=== PATIENT | male | born 1950 | race Caucasian/White ===

== ENCOUNTER → 2023-05-29 15:06 | Outpatient (CLI) | payer OTHER, SELFPAY ==
[2023-05-29 16:10] LABS: Add Manual Diff / Slide Review NO; Basophils Absolute Auto 0 /uL (0-100); Basophils Percent Auto 0.3 % (0-2); Eosinophils Absolute Auto 100 /uL (0-450); Eosinophils Percent Auto 2.2 % (2-4); Hematocrit 39.6 % (41-53); Hemoglobin 14.2 g/dL (13.5-17.5); Lymphocytes Absolute Auto 1300 /uL (1100-4500); Lymphocytes Percent Auto 26.7 % (25-40); Mean Corpuscular HGB Conc 35.7 % (30-36); Mean Corpuscular Hemoglobin 31.7 PG (26-34); Mean Corpuscular Volume 88.7 fL (80-100); Monocytes Absolute Auto 600 /uL (0-900); Monocytes Percent Auto 11.3 % (3-14); Neutrophils Absolute Auto 3000 /uL (1500-7000); Neutrophils Percent Auto 59.5 % (50-75); Platelet Count 281 X10^3/uL (150-400); Red Blood Cell Count 4.47 X10^6/uL (4.5-5.9); Red Cell Distribution Width 13.3 % (11.6-14.8)
[2023-05-29 16:22] LABS: Hemoglobin A1C% w Est Avg Glu 5.3 % (4.0-6.0)
[2023-05-29 16:35] LABS: Alanine Aminotransferase 14 IU/L (<50); Albumin 4.5 g/dL (3.5-5.0); Albumin Globulin Ratio 1.3 (1.0-2.8); Alkaline Phosphatase 72 U/L (38-126); Aspartate Aminotransferase 24 IU/L (17-59); Bilirubin Total 0.6 mg/dL (0.2-1.3); Blood Urea Nitrogen 15 mg/dL (9-20); Calcium 9.8 mg/dL (8.4-10.2); Carbon Dioxide 25 mmol/L (22-32); Chloride 103 mmol/L (98-107); Cholesterol 162 mg/dL (140-199); Estimated Glomerular Filt Rate > 60 mL/min (>60); Globulin 3.4 g/dL (1.7-4.1); Glucose 102 mg/dL (80-110); HDL Cholesterol 29 mg/dL (40-60); HEMOLYSIS 25 (0-50); LDL Cholesterol Calculated 83 mg/dL (<100); Potassium 3.1 mmol/L (3.4-5.1); Sodium 140 mmol/L (137-145); Total Protein 7.9 g/dL (6.3-8.2); Triglycerides 251 mg/dL (35-150)
== END ==
PROVIDERS: PCP Student in an Organized Health Care Education/Training Program; Referring Provider Student in an Organized Health Care Education/Training Program; Visit Provider Student in an Organized Health Care Education/Training Program
DX: I10 Essential (primary) hypertension (principal); Z13.1 Encounter for screening for diabetes mellitus
CPT/HCPCS: 36415; 80053; 80061; 83036; 85025

== ENCOUNTER → 2024-11-08 09:56 | Outpatient (CLI) | payer MEDICARE, MEDICAID, SELFPAY ==
[2024-11-08 10:38] LABS: Add Manual Diff / Slide Review NO; Basophils Absolute Auto 0 /uL (0-100); Basophils Percent Auto 0.3 % (0-2); Eosinophils Absolute Auto 100 /uL (0-450); Hematocrit 40.2 % (41-53); Hemoglobin 14.1 g/dL (13.5-17.5); Lymphocytes Absolute Auto 900 /uL (1100-4500); Lymphocytes Percent Auto 24.8 % (25-40); Mean Corpuscular HGB Conc 35.1 % (30-36); Mean Corpuscular Hemoglobin 31.2 PG (26-34); Mean Corpuscular Volume 88.8 fL (80-100); Monocytes Absolute Auto 500 /uL (0-900); Monocytes Percent Auto 12.8 % (3-14); Neutrophils Absolute Auto 2100 /uL (1500-7000); Neutrophils Percent Auto 59.1 % (50-75); Platelet Count 250 X10^3/uL (150-400); Red Blood Cell Count 4.53 X10^6/uL (4.5-5.9); Red Cell Distribution Width 13.7 % (11.6-14.8); White Blood Cell Count 3.6 X10^3/uL (4.5-11.0)
[2024-11-08 10:47] LABS: Hemoglobin A1C% w Est Avg Glu 5.4 % (4.0-6.0)
[2024-11-08 11:08] LABS: Alanine Aminotransferase 13 IU/L (<50); Albumin 4.9 g/dL (3.5-5.0); Alkaline Phosphatase 69 U/L (38-126); Aspartate Aminotransferase 19 IU/L (17-59); BUN Creatinine Ratio 17.6 (6-22); Bilirubin Total 1.3 mg/dL (0.2-1.3); Blood Urea Nitrogen 19 mg/dL (9-20); Calcium 9.9 mg/dL (8.4-10.2); Carbon Dioxide 27 mmol/L (22-32); Chloride 101 mmol/L (98-107); Cholesterol 198 mg/dL (140-199); Estimated Glomerular Filt Rate > 60 mL/min (>60); Globulin 2.5 g/dL (1.7-4.1); Glucose 137 mg/dL (80-110); HDL Cholesterol 35 mg/dL (40-60); HEMOLYSIS < 15 (0-50); LDL Cholesterol Calculated 139 mg/dL (<100); Potassium 3.4 mmol/L (3.4-5.1); Sodium 140 mmol/L (137-145); Total Protein 7.4 g/dL (6.3-8.2); Triglycerides 120 mg/dL (35-150)
[2024-11-08 13:51] LABS: Creatinine Urine Random 248.44 mg/dL
[2024-11-08 13:56] LABS: Microalbumin Urine Random 4.5 mg/dL (0-1.6)
== END ==
PROVIDERS: PCP Student in an Organized Health Care Education/Training Program; Referring Provider Student in an Organized Health Care Education/Training Program; Visit Provider Student in an Organized Health Care Education/Training Program
DX: E11.9 Type 2 diabetes mellitus without complications (principal); E78.5 Hyperlipidemia, unspecified; I10 Essential (primary) hypertension
CPT/HCPCS: 36415; 80053; 80061; 82043; 82570; 83036; 85025

== ENCOUNTER 2025-03-11 22:19 | Emergency (ER) | payer MEDICARE, SELFPAY ==
[2025-03-11 22:36] VITALS: BP 119/72; PULSE 98; RESP 16; TEMP 36.4; O2SAT 96; BMI 28.3
[2025-03-11 23:01] LABS: Appearance Urine UA CLOUDY; Bilirubin Urine UA 1+ (NEGATIVE); Color Urine UA RED; Glucose Urine UA NEGATIVE (Negative); Ketones Urine UA TRACE (NEGATIVE); Leukocyte Esterase Urine UA TRACE (NEGATIVE); Nitrite Urine UA NEGATIVE (Negative); Occult Blood Urine UA 3+ (Negative); Protein Urine UA 3+ (Negative); Specific Gravity Urine UA 1.025 (1.000-1.035); Urobilinogen Urine UA 2.0 E.U./dL (0.2); pH Urine UA 5.5 (4.5-8.0)
[2025-03-11 23:04] LABS: Culture Indicated Urine Specimen Cultured
[2025-03-11 23:14] LABS: Ictotest Urine Negative (Negative)
[2025-03-12 01:23] VITALS: BP 134/71; PULSE 79; RESP 16; TEMP 36.4; O2SAT 98
--- NOTE | 2025-03-12 01:54 | ED.MALEGU ---
HPI - Male Genitourinary General Chief complaint: Urogenital-Male Stated complaint: blood in urine Time Seen by Provider: 03/12/25 01:53 Source: family Mode of arrival: Wheelchair History of Present Illness HPI Narrative: (Sammarinese language translation by at bedside) 74-year-old male with history of Alzheimer's, lives with who is translating and communicating at bedside, recently moved with from [place], history of remote bladder cancer, history of remote prostate cancer, prior treatments at [facility], no active ongoing cancer treatments, has 2 days duration of bloody urine, no fevers, no nausea or vomiting. Not currently taking any antibiotics. No [place] catheters or suprapubic catheters. Not currently taking blood thinner medications. Related Data Previous Rx's ?Medication ?Instructions ?Recorded amlodipine 5 mg tablet 5 mg PO DAILY #90 tabs 05/30/24 aspirin 81 mg tablet,delayed 81 mg PO DAILY #30 tabs 05/30/24 release (Adult Aspirin Regimen) atorvastatin 40 mg tablet 40 mg PO DAILY #90 tabs 05/30/24 losartan 100 1 tab PO DAILY #90 tabs 05/30/24 mg-hydrochlorothiazide 25 mg tablet metformin 500 mg tablet 500 mg PO DAILY #90 tabs 09/16/24 sertraline 50 mg tablet 50 mg PO DAILY #90 tabs 09/20/24 cephalexin 500 mg capsule 500 mg PO QID 7 days #28 caps 03/12/25 Allergies Allergy/AdvReac Type Severity Reaction Status Date / Time No Known Drug Allergies Allergy Unverified 03/11/25 22:36 Patient History Social History Smoking Status: Never smoker Smoking Status: Never smoker Exam Narrative Exam Narrative: GENERAL: Alert, cooperative HEAD: Atraumatic. Normocephalic. EYES: Pupils equal round and reactive. Extraocular motions intact. No scleral icterus. No injection or drainage. ENT: Nose without bleeding, purulent drainage. No obvious craniofacial trauma. Airway patent. NECK: Trachea midline. Moves neck well. CARDIOVASCULAR: Regular rate and rhythm without murmurs, gallops, or rubs. RESPIRATORY: Clear to auscultation. Breath sounds equal bilaterally. No wheezes, rales, or rhonchi. GASTROINTESTINAL: Abdomen soft, non-tender, nondistended. EXTREMITIES: No edema or joint tenderness. BACK: Nontender without deformity or crepitance. No flank tenderness. NEURO: AOx3. Motor functions grossly nonfocal. SKIN: No rash or erythema of visible areas Initial Vital Signs Initial Vital Signs: Vital Signs Temperature 97.6 F 03/11/25 22:36 Pulse Rate 98 H 03/11/25 22:36 Respiratory Rate 16 03/11/25 22:36 Blood Pressure 119/72 03/11/25 22:36 Pulse Oximetry 96 03/11/25 22:36 Oxygen Delivery Method Room Air 03/11/25 22:36 Course Orders Ordered: ED Orders 03/11/25 22:45 Ictotest Urine Stat Urinalysis and Microscopic Stat Urine Culture Stat Discontinued Medications Cephalexin HCl (Cephalexin 250 Mg Capsule) 500 mg PO NOW ONE Stop: 03/12/25 02:09 Last Admin: 03/12/25 02:11 Dose: 500 mg Documented By: ALLEY Vital Signs Vital signs: Vital Signs - 8 hr 03/11/25 22:36 03/12/25 01:23 Temperature 97.6 F 97.6 F Pulse Rate 98 H 79 Respiratory Rate 16 16 Blood Pressure 119/72 134/71 Pulse Oximetry 96 98 Oxygen Delivery Method Room Air Room Air [facility] - Male Genitourinary Lab Data Attestation: I reviewed the patient's lab results. Lab results narrative: Urinalysis suspicious for infection, urine culture triggered. Labs: Lab Results 03/11/25 Range/Units 22:45 Urine Color Red Urine Appearance Cloudy Urine pH 5.5 (4.5-8.0) Ur Specific [place] 1.025 (1.000-1.035) Urine Protein 3+ H (Negative) Urine Glucose (UA) Negative (Negative) g/dL Urine Ketones Trace H (NEGATIVE) Urine Occult Blood 3+ H (Negative) Urine Nitrate Negative (Negative) Urine Bilirubin 1+ H (NEGATIVE) Ur Bilirubin Confirm Negative (Negative) Urine Urobilinogen 2.0 H (0.2) E.U./dL Ur Leukocyte Esterase Trace H (NEGATIVE) Urine RBC >100/hpf H (0-5/HPF) Urine WBC 10-30/hpf H (0-5/HPF) Ur Squamous Epith Cells 0-1 /hpf (0-5/HPF) Urine Bacteria Moderate (10-30) H (None) Ur Culture Indicated? Specimen cultured Vol Urine Centrifuged Low vol <10ml (spun) A [facility] Narrative Medical decision making narrative: History of dementia, bloody urine last couple of days, no fever unknown, afebrile, sirs screen negative. Urinalysis suspicious for infection. Oral antibiotic cephalexin given, prescription sent to pharmacy for further course of antibiotic. Advised recheck if not improving in the next couple of days. Return precautions discussed. Discharged home with . Discharge Plan Departure Patient Disposition: Home Clinical Impression: Urinary tract infection, Gross hematuria Instructions: DI for Urinary Tract Infection (UTI), DI for Hematuria Activity Restrictions/Additional Instructions: History of bladder and prostate cancer, prior remote treatment in [place], now with recent gross hematuria visible blood in urine. Urinalysis suspicious for infection, trial of antibiotics. First dose cephalexin antibiotic given in the emergency department, further course of antibiotic prescription sent to your pharmacy. Take antibiotics as directed. Follow up with your regular doctor to check urine culture and resolution of blood in the urine. Regarding follow up of bladder and prostate cancers, consider referral for local urology follow up, contact information given for office of local urologists. You might need referral from your primary care provider. Prescriptions: New cephalexin 500 mg capsule 500 mg PO QID 7 Days Qty: 28 0RF No Action aspirin [Adult Aspirin Regimen] 81 mg tablet,delayed release (DR/EC) 81 mg PO DAILY Qty: 30 3RF amlodipine 5 mg tablet 5 mg PO DAILY Qty: 90 3RF losartan-hydrochlorothiazide 100-25 mg tablet 1 tab PO DAILY Qty: 90 3RF atorvastatin 40 mg tablet 40 mg PO DAILY Qty: 90 3RF metformin 500 mg tablet 500 mg PO DAILY Qty: 90 3RF sertraline 50 mg tablet 50 mg PO DAILY Qty: 90 3RF Referrals: Alfie Richardson DO [Physician, Urology] Denise Purcell MD [Primary Care Provider, Family Practice] Stand Alone Forms: Patient Portal/API
== END 2025-03-12 02:18 | disposition home or self-care (01) ==
PROVIDERS: Emergency Provider Emergency Medicine; PCP Student in an Organized Health Care Education/Training Program
DX: N39.0 Urinary tract infection, site not specified (principal); R31.0 Gross hematuria; Z85.51 Personal history of malignant neoplasm of bladder; Z85.46 Personal history of malignant neoplasm of prostate
CPT/HCPCS: 81001; 87077; 87086; 87186; 99283